=== PATIENT | male | born 1985 | race Hispanic/Latino ===

== ENCOUNTER 2017-11-04 21:37 | Emergency (ER) | payer SELFPAY ==
[~2017-11-04] VITALS: Ht 160 cm; Wt 91.4 kg
[2017-11-04 23:30] LABS: ALBUMIN 4.6 g/dL (3.2-4.8); CHLORIDE 103 mEq/L (99-109); POTASSIUM 4.1 mEq/L (3.7-5.4); SODIUM 139 mEq/L (136-147)
[2017-11-04 23:33] LABS: GLUCOSE 104 mg/dL (70-99); TOTAL PROTEIN 7.6 g/dL (6.4-8.3)
[2017-11-04 23:35] LABS: TOTAL BILIRUBIN 0.4 mg/dL (0.0-1.0)
[2017-11-04 23:36] LABS: ALKALINE PHOSPHATASE 65 IU/L (3-129); CREATININE 0.9 mg/dL (0.6-1.3); GFR ESTIMATE (CALCULATED) > 59 mL/min/ (58.99-99999)
[2017-11-04 23:37] LABS: UREA NITROGEN (BUN) 19 mg/dL (9-23)
[2017-11-04 23:38] LABS: AST (GOT) 38 IU/L (2-34)
[2017-11-04 23:39] LABS: ALT (GPT) 62 IU/L (3-49)
[2017-11-04 23:40] LABS: LIPASE 16 U/L (1.0-51.0)
[2017-11-05 00:52] LABS: HEMATOCRIT 41.8 % (38.0-50.0); HEMOGLOBIN 14.4 G/DL (12.5-16.6); MCH 30.7 PG (29.0-34.0); MCHC 34.4 G/DL (30.0-36.0); MCV 89.1 FL (86-99); RBC DIS.WIDTH-CV 12.9 % (11.8-14.6); RED BLOOD COUNT 4.69 M/uL (4.00-5.50); WHITE BLOOD COUNT 9.8 K/uL (4.1-10.2)
[2017-11-05 01:15] VITALS: BP 125/74
[2017-11-05 02:17] LABS: PLAT.SUFFICIENCY ADEQUATE; PLATELET COUNT 340 K/uL (156-360)
== END 2017-11-05 01:15 | disposition home or self-care (01) ==
LOC: EME 21:37
PROVIDERS: Nurse Practitioner Family
DX: R10.13 Epigastric pain (principal); R11.0 Nausea; R06.02 Shortness of breath; R06.2 Wheezing; K43.9 Ventral hernia without obstruction or gangrene; K82.4 Cholesterolosis of gallbladder; Z87.891 Personal history of nicotine dependence
CPT/HCPCS: 74177; 76705; 80053; 81003; 83690; 85027; 99281; 99284; J7030